=== PATIENT | male | born 1980 | race Caucasian/White ===

== ENCOUNTER 2020-04-16 16:49 | Emergency (ER) | payer OTHER, MEDICARE ==
[~2020-04-16] VITALS: Ht 182.9 cm; Wt 73.5 kg
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
[2020-04-16 17:34] VITALS: BP 113/98
== END 2020-04-16 17:34 ==
LOC: ER 16:52
DX: Z02.89 Encounter for other administrative examinations (principal); Z86.19 Personal history of other infectious and parasitic diseases; Z60.2 Problems related to living alone

== ENCOUNTER 2021-06-20 04:45 | Emergency (ER) | payer MEDICARE, OTHER ==
[~2021-06-20] VITALS: Ht 172.7 cm; Wt 81.6 kg
[2021-06-20] MEDS ORDERED: BACITRACIN ZINC OINT PACKET 1 EA PACKET TP ONE ×2 (06:29→06:30)
[2021-06-20] MEDS ORDERED: KETOROLAC TROMETHAMINE 15 MG/ML VIAL ONE (06:29)
[2021-06-20] MEDS ORDERED: TDAP [DIPH/PERTUSSIS/TET] 0.5 ML VIAL IM ONE ×2 (06:29→06:30)
[2021-06-20] MEDS ORDERED: KETOROLAC TROMETHAMINE INJ 30 MG/ML VIAL IM ONE (06:30)
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
--- NOTE | 2021-06-20 07:12 | NUR ---
Patient discharged to home in stable condition. Written and verbal after care instructions given. Patient verbalizes understanding of instruction.
[2021-06-20 07:13] VITALS: BP 138/74
== END 2021-06-20 07:14 | disposition home or self-care (01) ==
LOC: ER 04:49
DX: S50.812A Abrasion of left forearm, initial encounter (principal); F17.200 Nicotine dependence, unspecified, uncomplicated; Z88.8 Allergy status to other drugs, medicaments and biological substances; Z60.2 Problems related to living alone; V19.88XA Pedal cyclist (driver) (passenger) injured in other specified transport accidents, initial encounter; Y93.I9 Activity, other involving external motion; Y92.89 Other specified places as the place of occurrence of the external cause; Y99.8 Other external cause status
CPT/HCPCS: 73090; 90471; 90715; 96372; 99284; 99406; J1885

== ENCOUNTER 2021-08-05 23:48 | Emergency (ER) | payer MEDICARE, OTHER ==
[~2021-08-05] VITALS: Ht 182.9 cm; Wt 77.1 kg
[2021-08-06] MEDS ORDERED: FLUORESCEIN SODIUM OPHTH 1 EA STRIP ONE (02:20)
[2021-08-06 02:21] VITALS: BP 145/78
[2021-08-06] MEDS ORDERED: ERYT3.5O9 RIGHTEYE (02:26)
[2021-08-06] MEDS ORDERED: FLUORESCEIN SODIUM OPHTH 1 EA STRIP OP ONE (02:30)
[2021-08-06] MEDS ORDERED: TETRACAINE HCL 0.5% OPHTALMIC 15 ML BOTTLE OP ONE (02:30)
--- NOTE | 2021-08-06 02:35 | NUR ---
Patient discharged to home in stable condition. Written and verbal after care instructions given. Patient verbalizes understanding of instruction.
== END 2021-08-06 02:35 | disposition home or self-care (01) ==
LOC: ER 23:58
DX: H00.11 Chalazion right upper eyelid (principal); F17.200 Nicotine dependence, unspecified, uncomplicated; Z86.19 Personal history of other infectious and parasitic diseases; Z88.8 Allergy status to other drugs, medicaments and biological substances; Z60.2 Problems related to living alone; Z79.899 Other long term (current) drug therapy

== ENCOUNTER 2022-06-22 13:21 | Emergency (ER) | payer MEDICARE, OTHER ==
[~2022-06-22] VITALS: Ht 182.9 cm; Wt 78.0 kg
[~2022-06-22 13:21] MED LIST: ERYT3.5O9 RIGHTEYE
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
--- NOTE | 2022-06-22 14:20 | NUR ---
PATIENT TAKEN TO CT VIA [facility]OFF[facility]
[2022-06-22] MEDS ORDERED: TDAP [DIPH/PERTUSSIS/TET] 0.5 ML VIAL IM ONE ×2 (14:30→14:43)
[2022-06-22] MEDS ORDERED: ACETAMINOPHEN ES 500 MG TABLET PO ONE (14:30)
[2022-06-22] MEDS ORDERED: ACETAMINOPHEN ES 500 MG TABLET ONE (14:42)
--- NOTE | 2022-06-22 15:50 | NUR ---
DERMA KRAFT APPLIED TO AFFECTED AREAS
--- NOTE | 2022-06-22 16:00 | NUR ---
Patient discharged to home in stable condition. Written and verbal after care instructions given. Patient verbalizes understanding of instruction.
[2022-06-22 16:20] VITALS: BP 135/80
== END 2022-06-22 16:00 | disposition home or self-care (01) ==
LOC: ER 13:27
DX: S01.81XA Laceration without foreign body of other part of head, initial encounter (principal); F17.200 Nicotine dependence, unspecified, uncomplicated; Z88.8 Allergy status to other drugs, medicaments and biological substances; Z60.2 Problems related to living alone; Z79.899 Other long term (current) drug therapy; V29.99XA Rider (driver) (passenger) of other motorcycle injured in unspecified traffic accident, initial encounter; Y93.89 Activity, other specified; Y92.89 Other specified places as the place of occurrence of the external cause; Y99.8 Other external cause status
CPT/HCPCS: 70450-TC; 72125-TC; 90715

== ENCOUNTER → 2023-01-02 | Emergency (ER) | payer MEDICARE, OTHER | END | disposition left against medical advice (07) | LOC: ER 22:20 | DX: Z53.21 Procedure and treatment not carried out due to patient leaving prior to being seen by health care provider (principal) ==